=== PATIENT | male | born 2000 | race Caucasian/White ===

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

== ENCOUNTER 2020-10-14 20:11 | Emergency (ER) | payer OTHER ==
[~2020-10-14] VITALS: Ht 175.3 cm; Wt 88.6 kg
[2020-10-14 20:27] VITALS: BP 131/78; Ht 175.3 cm; Wt 88.6 kg
== END 2020-10-14 20:47 | disposition home or self-care (01) ==
LOC: D.ER 20:11
DX: R22.1 Localized swelling, mass and lump, neck (principal); D49.9 Neoplasm of unspecified behavior of unspecified site